=== PATIENT | male | born 1955 | race Caucasian/White ===

== ENCOUNTER 2024-10-30 11:54 | Inpatient (IN) | payer OTHER ==
[~2024-10-30] VITALS: Ht 193 cm; Wt 97.3 kg
[~2024-10-30 11:54] MED LIST: NORPTMEDS CO
--- NOTE | 2024-10-30 13:16 | ED.PDOC ---
Musculoskeletal HPI Comments 69 year old male presents to the ED with chief complaint of left leg swelling and pain. Patient reports that he has been experiencing left leg swelling and pain for the past 3 days. Patient relays that he has not been able to put weight on his leg at all. Patient denies any numbness, weakness, tingling, chest pain, SOB, or N/V. Chief Complaint: Extremity Swelling Time Seen by MD: 13:03 Primary Care Provider: RAIMUNDO Francisco Notes: Nurses Notes, Medications, Allergies Allergies: Coded Allergies: NO KNOWN ALLERGIES (Unverified , 05/14/10) Home Meds Reported Medications No Reported Medication (NO REPORTED MEDICATION) Ea, 0 CO UNK, EA PATIENT HAS NO REPORTED MEDICATIONS 08/19/13 Information Source: Patient Mode of Arrival: Wheelchair Location: Left Extremity Location: Leg Timing: Days Prehospital treatment: None Severity: Moderate Able to Move Extremity: Yes Bear Weight: Limited Pain: Moderate Mechanism: Spontaneous Circumstances: Spontaneous Onset of Symptoms: Spontaneous Symptoms: Swelling, Pain DVT Risk Factors: NONE Associated signs and symptoms: Leg pain Past Medical History PAST MEDICAL HISTORY: Denies Surgical History: Denies all surgeries Family History Family History: Unknown Social History Smoker: Cigarettes Alcohol: Denies ETOH Use Drugs: Denies Drug Use Lives In: Home Constitutional: denies: chills, diaphoresis, fatigue, fever, malaise, sweats, weakness, others EENTM: denies: blurred vision, double vision, ear bleeding, ear discharge, ear drainage, ear pain, ear ringing, eye pain, eye redness, hearing loss, mouth pain, mouth swelling, nasal discharge, nose bleeding, nose congestion, nose pain, photophobia, tearing, throat pain, throat swelling, voice changes, others Respiratory: denies: cough, hemoptysis, orthopnea, SOB at rest, shortness of breath, SOB with excertion, stridor, wheezing, others Cardiovascular: denies: chest pain, dizzy spells, diaphoresis, Dyspnea on exertion, edema, irregular heart beat, left arm pain, lightheadedness, palpitations, PND, syncope, others Gastrointestinal: denies: abdomen distended, abdominal pain, blood streaked bowels, constipated, diarrhea, dysphagia, difficulty swallowing, hematemesis, melena, nausea, poor appetite, poor fluid intake, rectal bleeding, rectal pain, vomiting, others Genitourinary: denies: burning, dysuria, flank pain, frequency, hematuria, incontinence, penile discharge, penile sore, pain, testicle pain, testicle swelling, urgency, others Neurological: denies: dizziness, fainting, headache, left sided numbness, left sided weakness, numbness, paresthesia, pre-existing deficit, right sided numbness, right sided weakness, seizure, speech problems, tingling, tremors, weakness, others Musculoskeletal: reports: others (Left leg swelling and pain); denies: back pain, gout, joint pain, joint swelling, muscle pain, muscle stiffness, neck pain Integumetry: denies: bruises, change in color, change in hair/nails, dryness, laceration, lesions, lumps, rash, wounds, others Allergic/Immunocompromised: denies: Difficulty Healing, Frequent Infections, Hives, Itching, others Hematologic/Lymphatic: denies: anemia, blood clots, easy bleeding, easy bruising, swollen glands, others Endocrine: denies: excessive hunger, excessive sweating, excessive thirst, excessive urination, flushing, intolerance to cold, intolerance to heat, unexplained weight gain, unexplained weight loss, others Psychiatric: denies: anxiety, bipolar disorder, depression, hopeless, panic disorder, schizophrenia, sleepless, suicidal, others All Other Systems: Reviewed and Negative Physical Exam General Appearance: Moderate Distress, Normal HEENT: Normal ENT Inspection, PERRL/EOMI Neck: Full Range of Motion, Non-Tender, Normal, Normal Inspection Respiratory: Chest Non-Tender, Lungs Clear, No Accessory Muscle Use, No Respiratory Distress, Normal Breath Sounds Cardiovascular: No Edema, No JVD, No Murmur, No Gallop, Normal Peripheral Pulses, Regular Rate/Rhythm Breast Exam: Deferred Gastrointestinal: No Organomegaly, Non Tender, No Pulsatile Mass, Normal Bowel Sounds, Soft Genitalia: Deferred Pelvic: Deferred Rectal: Deferred Extremities: No calf tenderness, Normal capillary refill, Normal inspection, Normal range of motion, Non-tender, No pedal edema Musculoskeletal : Apperance: Normal Neurologic: Alert, vat packer II-XII nml as Tested, No Motor Deficits, Normal Affect, Normal Mood, No Sensory Deficits Cerebellar Function: NOT DONE Reflexes: NOT DONE Skin: Dry, Normal Color, Warm Peripheral Pulses: 3+ Radial (R), 3+ Radial (L) Lymphatic: No Adenopathy Was a procedure done? Was a procedure done?: No Differential Diagnosis EXT Differential Diagnosis: CHF, Deep Vein Thrombosis X-Ray, Labs, Meds, VS Vital Signs Date Time Temp Pulse Resp B/P (MAP) Pulse Ox O2 Delivery O2 Flow Rate FiO2 10/30/24 12:20 98.2 108 18 129/78 (95) 97 98.2 Lab Test 10/30/24 14:00 Range/Units White Blood Count 10.5 4.4-10.8 10^3/uL Red Blood Count 5.29 4.5-5.90 10^6/uL Hemoglobin 18.3 H 13.5-17.5 g/dL Hematocrit 52.9 41.0-53.0 % Mean Corpuscular Volume 100.0 80.0-100.0 fL Mean Corpuscular Hemoglobin 34.6 H 28.0-32.0 pg Mean Corpuscular Hemoglobin Concent 34.6 32.0-36.0 g/dL Red Cell Distribution Width 13.6 11.8-14.3 % Platelet Count 117 L 140-450 10^3/uL Mean Platelet Volume 8.4 6.9-10.8 fL Neutrophils (%) (Auto) 81.5 H 37.0-80.0 % Lymphocytes (%) (Auto) 7.6 L 10.0-50.0 % Monocytes (%) (Auto) 10.3 0.0-12.0 % Eosinophils (%) (Auto) 0.3 0.0-7.0 % Basophils (%) (Auto) 0.3 0.0-2.0 % Neutrophils # (Auto) 8.6 1.6-8.6 10 ^3/uL Lymphocytes # (Auto) 0.8 0.4-5.4 10 ^3/uL Monocytes # (Auto) 1.1 0-1.3 10 ^3/uL Eosinophils # (Auto) 0 0-0.8 10 ^3/uL Basophils # (Auto) 0 0-0.2 10 ^3/uL Nucleated Red Blood Cells 0.1 % Sodium Level 133 L 136-145 mmol/L Potassium Level 4.2 3.5-5.1 mmol/L Chloride Level 97 L 98-107 mmol/L Carbon Dioxide Level 28 20-31 mmol/L Anion Gap 8 5-15 Blood Urea Nitrogen 9 9-23 mg/dL Creatinine 0.88 0.700-1.30 mg/dL Glomerular Filtration Rate Calc 94 >90 mL/min BUN/Creatinine Ratio 10.2 10.0-20.0 Serum Glucose 155 H 74-106 mg/dL Calcium Level 9.6 8.7-10.4 mg/dL Troponin I High Sensitivity < 3 L </=54 ng/L Lt DVT US: Findings/IMPRESSION: Positive DVT is present throughout the left lower extremity from the common femoral vein to the popliteal vein. Critical Result: Stroke Alert Findings discussed with Dr. Rivera, at 10/30/2024 02:52 PM, and acknowledged receipt and understanding of the findings. Patient alert. Complaining of left lower extremity pain. Vitals stable. Answering questions. Ultrasound does show DVT. Blood sugar elevated. Cardiac marker within normal limits. WBC within normal limits. Explained to the patient at 3:50 p.m. in the lobby that he will be admitted for DVT with anticoagulation. Continue to monitor. Images Reviewed?: Images reviewed and evaluated by me Time of 1ST Reevaluation: 14:03 Reevaluation 1ST: Unchanged Patient Education/Counseling: Diagnosis, Treatment Family Education/Counseling: Diagnosis, Treatment Additional Information The following tests were ordered, and results were reviewed by me: Lt Lower DVT, Chest XR, CBC, BMP, Troponin Additional Information was gathered from interviewing the following independent historians: None I reviewed and agreed with the following test results read by other providers: Lt Lower DVT, Chest XR I discussed treatment and results with medical personnel and: patient Comprehensive systems review obtained and negative except for what is stated in the HPI. Departure 1 Departure Time of Disposition: 16:08 Impression: Primary Impression: DVT (deep venous thrombosis) Qualified Codes: I82.412 - Acute embolism and thrombosis of left femoral vein Disposition: ADMITTED INPATIENT Admit to: Med Surg Condition: Guarded Comments Spoke to and examined patient at 1315, discussing treatment plan at this time. Critical Care Note Critical Care Time?: Yes (90 min-critical care time only) Critical care comment: Continue to monitor Stability Stability form required: No Heart Score Heart Score: Heart Score Response (Comments) Value History N/A 0 EKG N/A 0 Age N/A 0 Risk Factors N/A 0 Troponin N/A 0 Total 0 I personally scribed for EDDA RIVERA MD ([email or web address]) on 10/30/24 at 13:16. Electronically submitted by Kale Dietrich ([email or web address]). I personally scribed for EDDA RIVERA MD ([email or web address]) on 10/30/24 at 15:28. Electronically submitted by Kale Dietrich ([email or web address]). I personally scribed for EDDA RIVERA MD ([email or web address]) on 10/30/24 at 15:29. Electronically submitted by Kale Dietrich ([email or web address]). EDDA RIVERA MD October 30, 2024 13:16
--- NOTE | 2024-10-30 14:13 | DVH ---
CHEST RADIOGRAPH Indication: sob Technique: Single frontal view of the chest was obtained Comparison: None FINDINGS: Lines and Tubes: None Lungs: No focal consolidation. Pleura: No effusion. No pneumothorax. Cardiomediastinal contours: Unremarkable Bones: No acute osseous abnormality. IMPRESSION: No acute cardiopulmonary disease.
[2024-10-30 14:31] LABS: Basophils # (auto) 0 10 ^3/uL (0-0.2); Basophils % (auto) 0.3 % (0.0-2.0); Eosinophils # (auto) 0 10 ^3/uL (0-0.8); Eosinophils % (auto) 0.3 % (0.0-7.0); Hematocrit 52.9 % (41.0-53.0); Hemoglobin 18.3 g/dL (13.5-17.5); Lymphocytes # (auto) 0.8 10 ^3/uL (0.4-5.4); Lymphocytes % (auto) 7.6 % (10.0-50.0); Mean Corpuscular Hemoglobin 34.6 pg (28.0-32.0); Mean Corpuscular Hgb Conc. 34.6 g/dL (32.0-36.0); Monocytes # (auto) 1.1 10 ^3/uL (0-1.3); Monocytes % (auto) 10.3 % (0.0-12.0); Neutrophils # (auto) 8.6 10 ^3/uL (1.6-8.6); Neutrophils % (auto) 81.5 % (37.0-80.0); Nucleated Red Blood Cells % 0.1 %; Platelet Count (auto) 117 10^3/uL (140-450); Red Blood Cells 5.29 10^6/uL (4.5-5.90); Red Cell Distribution Width 13.6 % (11.8-14.3); White Blood Cell 10.5 10^3/uL (4.4-10.8)
[2024-10-30 14:32] LABS: Potassium 4.2 mmol/L (3.5-5.1)
[2024-10-30 14:33] LABS: Anion Gap 8 (5-15); Carbon Dioxide 28 mmol/L (20-31)
[2024-10-30 14:34] LABS: Calcium 9.6 mg/dL (8.7-10.4)
[2024-10-30 14:35] LABS: Chloride 97 mmol/L (98-107); Sodium 133 mmol/L (136-145)
[2024-10-30 14:38] LABS: BUN/Creatinine Ratio 10.2 (10.0-20.0)
[2024-10-30 14:39] LABS: Blood Urea Nitrogen 9 mg/dL (9-23); Glucose 155 mg/dL (74-106)
--- NOTE | 2024-10-30 14:55 | DVH ---
Left lower extremity venous duplex Clinical History: dvt Comparison: None Technique: Duplex Doppler evaluation of the deep venous system of the left lower extremity from the common femor al vein to the popliteal vein including color Doppler and spectral/pulsed waveform analysis was perfo rmed. Findings/IMPRESSION: Positive DVT is present throughout the left lower extremity from the common femoral vein to the popli teal vein. Critical Result: Stroke Alert Findings discussed with Dr. Valladares, at 10/30/2024 02:52 PM, and acknowledged receipt and understandi ng of the findings.
[2024-10-30] MEDS ORDERED: HEPARIN SODIUM (PORCINE) 5000 UNITS/ML 1ML VIAL IV ONE ×2 (16:15→20:15)
[2024-10-30] MEDS ORDERED: ONDANSETRON HCL 4 MG/2 ML VIAL IV PRN (19:30)
[2024-10-30] MEDS ORDERED: NITROGLYCERIN 0.4 MG SL TAB SL PRN (19:30)
[2024-10-30] MEDS ORDERED: ACETAMINOPHEN 325 MG TAB PO PRN (19:30)
[2024-10-30] MEDS ORDERED: MORPHINE SULFATE INJ 2 MG/ml SYRG IV PRN (19:30)
[2024-10-30 19:57] LABS: INR 1.04 (0.9-1.15); Partial Thromboplastin Time 29.9 SEC (24.5-34.5)
[2024-10-30 21:00] VITALS: PULSE 117; RESP 17; O2SAT 97
[2024-10-30] MEDS: HEPARIN SODIUM (PORCINE) 5000 UNITS/ML 1ML VIAL IV ONE (21:04)
--- NOTE | 2024-10-30 21:09 | DVHHP2 ---
History of Present Illness Reason for Visit: Left leg swelling History of Present Illness 69-year-old male presents for evaluation of left leg swelling. Patient reports noticing his left leg becoming swollen at the calf yesterday. Today he states his leg has extended swelling up to his groin reports being unable to bear weigh t on the leg and feels lot of pressure. No chest pain or shortness for breath. No other acute complaints reported. Past Medical History Denies Past Surgical History Denies Family History Noncontributory Smoke: <1 pack per day ALCOHOL: none Drugs: None Lives: with Family Review of Systems Review of Systems Review of systems are currently negative otherwise addressed in HPI. Allergies: Coded Allergies: NO KNOWN ALLERGIES (Unverified , 05/14/10) Medications Current Medications Medications Dose Ordered Sig/Yevgeniy Route Start Time Stop Time Status Last Admin Dose Admin Heparin Sodium/ Dextrose 250 ml @ 17 mls/hr [id number] IV 10/30/24 19:30 Acetaminophen/ Hydrocodone Bitart 1 tab Q4HP PRN PO 10/30/24 19:30 Ondansetron HCl 4 mg Q4HP PRN IV 10/30/24 19:30 Acetaminophen 650 mg Q6HP PRN PO 10/30/24 19:30 Nitroglycerin 0.4 mg Q5MINP PRN SL 10/30/24 19:30 Morphine Sulfate 2 mg Q30M PRN IV 10/30/24 19:30 Exam Vital Signs Vital Signs Date Time Temp Pulse Resp B/P (MAP) Pulse Ox O2 Delivery O2 Flow Rate FiO2 10/30/24 19:56 99.5 116 18 125/79 (94) 96 99.5 Exam Gen: 69-year-old male in mild distress Skin: Warm, dry, normal color and texture, no rash. HEENT: Normocephalic atraumatic, mucous membranes moist and pink. Neck: Cervical and supraclavicular nodes normal without enlargement, trachea is midline, thyroid gland is normal without masses. Pulmonary: Clear to auscultation and percussion bilaterally. Cardiac: Regular rate and rhythm. No murmur Abdomen: Soft, nontender, nondistended, bowel sounds present all 4 quadrants, no guarding, no rigidity, no organomegaly. Extremities: No cyanosis, clubbing, left lower extremity with extensive swelling and erythema from the going to the ankle Neuro: Cranial nerves II through XII grossly intact, normal affect and speech, no focal motor deficits. Labs/Xrays ORDERING PHYSICIAN: EDDA RIVERA MD PROCEDURE(s): CXRP - CHEST PORTABLE REASON: sob ORDER NUMBER(s): [id number], ACCESSION NUMBER(s): [id number] CHEST RADIOGRAPH Indication: sob Technique: Single frontal view of the chest was obtained Comparison: None FINDINGS: Lines and Tubes: None Lungs: No focal consolidation. Pleura: No effusion. No pneumothorax. Cardiomediastinal contours: Unremarkable Bones: No acute osseous abnormality. IMPRESSION: No acute cardiopulmonary disease. RING PHYSICIAN: EDDA RIVERA MD PROCEDURE(s): LLDVT - LT Lower DVT REASON: dvt ORDER NUMBER(s): [id number], ACCESSION NUMBER(s): [id number] Left lower extremity venous duplex Clinical History: dvt Comparison: None Technique: Duplex Doppler evaluation of the deep venous system of the left lower extremity from the common femoral vein to the popliteal vein including color Doppler and spectral/pulsed waveform analysis was performed. Findings/IMPRESSION: Positive DVT is present throughout the left lower extremity from the common femoral vein to the popliteal vein. Critical Result: Stroke Alert Findings discussed with Dr. Rivera, at 10/30/2024 02:52 PM, and acknowledged receipt and understanding of the findings. Labs Test 10/30/24 19:31 10/30/24 14:00 Range/Units Prothrombin Time 11.0 9.3-11.8 sec Prothrombin Time INR 1.04 0.9-1.15 Activated Partial Thromboplast Time 29.9 24.5-34.5 SEC White Blood Count 10.5 4.4-10.8 10^3/uL Red Blood Count 5.29 4.5-5.90 10^6/uL Hemoglobin 18.3 H 13.5-17.5 g/dL Hematocrit 52.9 41.0-53.0 % Mean Corpuscular Volume 100.0 80.0-100.0 fL Mean Corpuscular Hemoglobin 34.6 H 28.0-32.0 pg Mean Corpuscular Hemoglobin Concent 34.6 32.0-36.0 g/dL Red Cell Distribution Width 13.6 11.8-14.3 % Platelet Count 117 L 140-450 10^3/uL Mean Platelet Volume 8.4 6.9-10.8 fL Neutrophils (%) (Auto) 81.5 H 37.0-80.0 % Lymphocytes (%) (Auto) 7.6 L 10.0-50.0 % Monocytes (%) (Auto) 10.3 0.0-12.0 % Eosinophils (%) (Auto) 0.3 0.0-7.0 % Basophils (%) (Auto) 0.3 0.0-2.0 % Neutrophils # (Auto) 8.6 1.6-8.6 10 ^3/uL Lymphocytes # (Auto) 0.8 0.4-5.4 10 ^3/uL Monocytes # (Auto) 1.1 0-1.3 10 ^3/uL Eosinophils # (Auto) 0 0-0.8 10 ^3/uL Basophils # (Auto) 0 0-0.2 10 ^3/uL Nucleated Red Blood Cells 0.1 % Sodium Level 133 L 136-145 mmol/L Potassium Level 4.2 3.5-5.1 mmol/L Chloride Level 97 L 98-107 mmol/L Carbon Dioxide Level 28 20-31 mmol/L Anion Gap 8 5-15 Blood Urea Nitrogen 9 9-23 mg/dL Creatinine 0.88 0.700-1.30 mg/dL Glomerular Filtration Rate Calc 94 >90 mL/min BUN/Creatinine Ratio 10.2 10.0-20.0 Serum Glucose 155 H 74-106 mg/dL Calcium Level 9.6 8.7-10.4 mg/dL Troponin I High Sensitivity < 3 L </=54 ng/L Assessment/Plan Assessment/Plan Assessment Left lower extremity extensive DVT Plan Admit the patient to [facility] to the hospitalist ER provider ordered a bolus of heparin, therefore we will continue with the heparin drip ER provider also ordered a radiology consult Pain management Monitor for signs and symptoms of pulmonary embolism. Continue treatment per orders. Plan discussed with: Patient My Orders Orders - RADHAMES SANCHEZ AGACNP Procedure Category Date Status Time Platelet Monitoring [facility] 10/30/24 In Process 19:21 Vte Protocol Initiated 10/30/24 In Process 19:21 Heparin Per [facility] 10/30/24 In Process Standardized Proce 19:21 Discontinue All Im [facility] 10/30/24 In Process Injections 19:21 Heparin Drip/D5w [facility] 10/30/24 In Process 100units/Ml 19:30 Basic Metabolic Panel LAB 10/31/24 Verified 04:00 Admit ADMIT 10/30/24 Transmitted 19:23 Hydrocodone-Acet [facility] 10/30/24 In Process 5/325mg Tab ([place] 19:30 Ondansetron Hcl PH[facility] 10/30/24 In Process (Zofran) 19:30 Complete Blood Count LAB 10/31/24 Verified 04:00 Cardiac DIET 10/31/24 Transmitted Diet-2gna,Lofat,Lochol Breakfast Condition: Stable [facility] 10/30/24 In Process 19:23 Acetaminophen Tablet [facility] 10/30/24 In Process (Tylenol Tablet) 19:30 Bedrest With Bathroom [facility] 10/30/24 In Process Privileg 19:23 Nitroglycerin PHA 10/30/24 In Process Sublingual (Ntrostat 19:30 Morphine Sulfate PHA 10/30/24 In Process Injection 19:30 Stat Ekg For Chest [facility] 10/30/24 In Process Pain 19:23 Notify Md Of Changes [facility] 10/30/24 In Process From Base 19:23 Rider Ticket Worker For [facility] 10/30/24 In Process 24 Hours 19:23 Emergency Dysrhythmia [facility] 10/30/24 In Process Protocol 19:23 Rhythm Strips Once [facility] 10/30/24 In Process Every Shift 19:23 Oxygen By Nasal RT 10/30/24 Transmitted Cannula 19:23 Heparin Per Pharmacy [facility] 10/30/24 In Process Protocol 20:12 Date of Service: October 30, 2024 Billing Provider: RADHAMES SANCHEZ Common Visit Codes: [id number] INP/OBS CARE (HIGH) RADHAEMS SANCHEZ October 30, 2024 21:09
[2024-10-30] MEDS: HEPARIN DRIP/D5W 100UNITS/ML 250 ML IV SCH (21:14)
[2024-10-31 03:04] LABS: Basophils # (auto) 0.1 10 ^3/uL (0-0.2); Hemoglobin 17.1 g/dL (13.5-17.5); Lymphocytes # (auto) 1.3 10 ^3/uL (0.4-5.4); Red Cell Distribution Width 13.2 % (11.8-14.3); White Blood Cell 10.7 10^3/uL (4.4-10.8)
[2024-10-31 03:06] LABS: Basophils % (auto) 0.6 % (0.0-2.0); Eosinophils # (auto) 0.2 10 ^3/uL (0-0.8); Eosinophils % (auto) 1.5 % (0.0-7.0); Hematocrit 49.8 % (41.0-53.0); Mean Corpuscular Hemoglobin 34.2 pg (28.0-32.0); Mean Corpuscular Hgb Conc. 34.3 g/dL (32.0-36.0); Mean Corpuscular Volume 99.7 fL (80.0-100.0); Monocytes # (auto) 1.1 10 ^3/uL (0-1.3); Monocytes % (auto) 10.6 % (0.0-12.0); Neutrophils % (auto) 75.3 % (37.0-80.0); Platelet Count (auto) 117 10^3/uL (140-450); Red Blood Cells 4.99 10^6/uL (4.5-5.90)
[2024-10-31 03:13] LABS: Chloride 101 mmol/L (98-107); Potassium 3.7 mmol/L (3.5-5.1)
[2024-10-31 03:14] LABS: Anion Gap 8 (5-15); Carbon Dioxide 24 mmol/L (20-31)
[2024-10-31 03:19] LABS: BUN/Creatinine Ratio 10.8 (10.0-20.0)
[2024-10-31 03:25] LABS: Blood Urea Nitrogen 8 mg/dL (9-23); Calcium 8.3 mg/dL (8.7-10.4); Glucose 115 mg/dL (74-106); Sodium 133 mmol/L (136-145)
[2024-10-31 03:32] LABS: INR 1.07 (0.9-1.15); Prothrombin Time 11.3 sec (9.3-11.8)
[2024-10-31 03:37] LABS: Partial Thromboplastin Time 73.5 SEC (24.5-34.5)
[2024-10-31 08:00] VITALS: PULSE 97; RESP 16; O2SAT 95
[2024-10-31 09:28] LABS: INR 1.06 (0.9-1.15); Prothrombin Time 11.2 sec (9.3-11.8)
[2024-10-31 10:40] LABS: Urine Bacteria None Seen /hpf (None Seen)
[2024-10-31 10:45] LABS: Urine Blood Negative /uL (Negative); Urine Clarity Clear (Clear); Urine Color Orange (Yellow); Urine Protein, UAD TRACE (Negative); Urine Squamous Epithelial Cell FEW /hpf (<5); Urine Urobilinogen OVER mg/dL (Negative); Urine WBC 2 /HPF (0-3)
[2024-10-31 15:26] VITALS: BP 129/82; PULSE 101; RESP 16; TEMP 97.9; O2SAT 99
[2024-10-31 15:49] LABS: INR 1.05 (0.9-1.15); Prothrombin Time 11.1 sec (9.3-11.8)
[2024-10-31 16:25] VITALS: BP 129/82; PULSE 101; RESP 16; TEMP 97.9; O2SAT 99
[2024-10-31 17:00] VITALS: BP 115/74; PULSE 108; RESP 16; TEMP 98.1; O2SAT 95
--- NOTE | 2024-10-31 17:07 | DVHPN2 ---
Subjective 69-year-old male with no past medical history comes with chief complaint of swelling and pain in his left leg for the last 2-3 days Apparently he spends most of his day sitting on a computer, not very active Does not take any medications at home No shortness a breath Changes from previous H/P or p: Changes Objective Vitals Vital Signs Date Time Temp Pulse Resp B/P (MAP) Pulse Ox O2 Delivery O2 Flow Rate FiO2 10/31/24 16:25 97.9 101 16 129/82 (98) 99 97.9 10/31/24 16:25 Room Air* 0 21 Intake/Output Intake and Output 10/31/24 07:00 Intake Total 158 ml Balance 158 ml Intake IV Total 158 ml General Appearance: Alert, Oriented X3, Cooperative, No acute distress, mild distress Lungs: Clear to auscultation, Normal air movement Cardiovascular: Normal S1, Normal S2, No murmurs Abdomen: Normal bowel sounds, Soft, No tenderness Medications Current Medications Medications Dose Ordered Sig/Yevgeniy Route Start Time Stop Time Status Last Admin Dose Admin Heparin Sodium/ Dextrose 250 ml @ 17 mls/hr [id number] IV 10/30/24 19:30 10/31/24 10:27 17 MLS/HR Acetaminophen/ Hydrocodone Bitart 1 tab Q4HP PRN PO 10/30/24 19:30 Ondansetron HCl 4 mg Q4HP PRN IV 10/30/24 19:30 Acetaminophen 650 mg Q6HP PRN PO 10/30/24 19:30 Nitroglycerin 0.4 mg Q5MINP PRN SL 10/30/24 19:30 Morphine Sulfate 2 mg Q30M PRN IV 10/30/24 19:30 Laboratory Results Laboratory Tests 10/31/24 03:00 Chemistry Test 10/31/24 03:00 Calcium Level 8.3 mg/dL (8.7-10.4) L Coagulation Test 10/30/24 19:31 10/31/24 03:00 10/31/24 08:58 10/31/24 15:08 Prothrombin Time 11.0 sec (9.3-11.8) 11.3 sec (9.3-11.8) 11.2 sec (9.3-11.8) 11.1 sec (9.3-11.8) Prothrombin Time INR 1.04 (0.9-1.15) 1.07 (0.9-1.15) 1.06 (0.9-1.15) 1.05 (0.9-1.15) Activated Partial Thromboplast Time 29.9 SEC (24.5-34.5) 73.5 SEC (24.5-34.5) *H 69.0 SEC (24.5-34.5) H 63.0 SEC (24.5-34.5) H Urinalysis Test 10/31/24 10:25 Urine Color [place] (Yellow) H Urine Clarity Clear (Clear) Urine pH 6.0 (5.0-9.0) Urine Specific [place] 1.020 (1.001-1.035) Urine Protein Trace (Negative) H Urine Ketones Negative (Negative) Urine Blood Negative /uL (Negative) Urine Nitrite Negative (Negative) Urine Bilirubin 1+ (Negative) Urine Urobilinogen Over mg/dL (Negative) Urine Leukocyte Esterase Negative /uL (Negative) Urine RBC 3 /hpf (0 - 3) Urine Microscopic WBC 2 /HPF (0-3) Urine Squamous Epithelial Cells Few /hpf (<5) Urine Bacteria None seen /hpf (None Seen) Urine Glucose Normal mg/dL (Normal) Assessment/Plan Assessment/Plan Extensive DVT of the left lower extremity Mild hyponatremia No other medical history Plan Switch to Lovenox therapeutic dose Bedrest Pain management Full code Protonix for GI prophylaxis Plan discussed with: Patient Date of Service: October 31, 2024 Billing Provider: ELIZABETH ROWELL MD Common Visit Codes: NOT BILLABLE ELIZABETH ROWELL MD October 31, 2024 17:07
[2024-10-31] MEDS: PANTOPRAZOLE 40 MG TAB PO ONE (17:47)
[2024-10-31 20:00] VITALS: PULSE 105; PULSE 99; RESP 19; O2SAT 95
[2024-10-31 21:00] VITALS: BP 121/71; PULSE 99; RESP 18; TEMP 97.9; O2SAT 95
[2024-10-31] MEDS: ENOXAPARIN SOD 100 MG/1 ML SYRINGE SC SCH (21:59)
[2024-11-01] VITALS (11 sets, daily range): BP systolic 106–137; BP diastolic 61–86; PULSE 71–111; RESP 15–20; TEMP 97.7–98.3; O2SAT 94–99
[2024-11-01] MEDS: PANTOPRAZOLE 40 MG TAB PO SCH (05:40)
[2024-11-01 06:17] LABS: INR 1.03 (0.9-1.15); Partial Thromboplastin Time 36.1 SEC (24.5-34.5); Prothrombin Time 10.9 sec (9.3-11.8)
[2024-11-01 06:27] LABS: Albumin 3.5 g/dL (3.2-4.8); Alkaline Phosphatase 78 U/L (46-116); Anion Gap 7 (5-15); Aspartate Aminotransferase 38 U/L (13-40); BUN/Creatinine Ratio 13.2 (10.0-20.0); Blood Urea Nitrogen 10 mg/dL (9-23); Calcium 8.9 mg/dL (8.7-10.4); Carbon Dioxide 26 mmol/L (20-31); Chloride 100 mmol/L (98-107); Glucose 81 mg/dL (74-106); LDL Cholesterol 93 mg/dL (< 100); Magnesium 2.2 mg/dL (1.6-2.6); Potassium 3.8 mmol/L (3.5-5.1); Total Protein 5.8 g/dL (5.7-8.2); Triglycerides 103 mg/dL (< 150)
[2024-11-01 06:28] LABS: Cholesterol 141 mg/dL (< 200)
[2024-11-01 06:45] LABS: Alanine Aminotransferase 44 U/L (7-40); Bilirubin, Total 2.1 mg/dL (0.2-1.0); HDL Cholesterol 38 mg/dL (40-59); Sodium 133 mmol/L (136-145)
[2024-11-01 07:03] LABS: Lipase 37 U/L (12-53)
[2024-11-01] MEDS: IODIXANOL 320MG/ML 100ML BTL IV ONE (10:23)
[2024-11-01] MEDS: HEPARIN SODIUM (PORCINE) 5000 UNITS/ML 1ML VIAL ONE (10:25)
[2024-11-01] MEDS: LIDOCAINE W/ EPINEPHRINE 2% INJ 20ML VIAL ONE (10:25)
[2024-11-01] MEDS: ANGIOMAX 250 MG VIAL IV ONE ×2 (10:25→12:46)
[2024-11-01] MEDS: SODIUM CHL 0.9% 0 ML ONE (10:26)
[2024-11-01] MEDS: fentaNYL CITRATE 100 MCG/2 ML VL ONE (10:26)
[2024-11-01] MEDS: MIDAZOLAM HCL 2MG/2ML 2ml VIAL (1mg/ml) ONE (10:26)
[2024-11-01] MEDS: LIDOCAINE 2%HCL (LOCAL ANESTH.) INJ 20ML MDV ONE (10:26)
--- NOTE | 2024-11-01 10:40 | ECG ---
[facility] Test Date: 2024-11-01 Test Time: 10:19:50 Pat Name: GRETTA RIVERA Department: Room: 0214 B Gender: M Senior Web Designer: Jolene GUERRA RN : [id number] Requested By: ERMA MAR Order Number: [id number] Reading MD: Edilberto Durbin Measurements Intervals [place] Rate: 89 P: 49 AL: 134 QRS: 37 QRSD: 70 T: 29 QT: 388 QTc: 472 Interpretive Statements Normal sinus rhythm Electronically Signed On 11-02-2024 20:52:04 PDT by Edilberto Durbin Please click the below link to view image of tracing.
[2024-11-01] MEDS: HYDROcodone-ACET 5/325MG TAB PO PRN (14:44)
--- NOTE | 2024-11-01 15:48 | DVHINCON2 ---
Date Seen: November 01, 2024 Referring Physician MD Alfa Reason for Consultation May-Thurner Syndrome History of Present Illness This is a 69-year-old man who presented to the emergency room with a chief complaint of lead lower extremity edema for three days. During admission he was diagnosed with a positive extensive DVT of the left lower extremity from the common femoral vein to the popliteal vein. He underwent a lower extremity thrombectomy with Dr. 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 Significant medical history only includes tobacco use. Past Medical History Past medical history reviewed. No other significant than mentioned above. Past Surgical History Hernia repair Family History: Patient reports no known family medical history. Family History Family history reviewed. Social History Denies the use of illicit drugs and alcohol. Admits to tobacco use. Allergies: Coded Allergies: NO KNOWN ALLERGIES (Unverified , 05/14/10) Home Meds Reported Medications No Reported Medication (NO REPORTED MEDICATION) Ea, 0 CO UNK, EA PATIENT HAS NO REPORTED MEDICATIONS 08/19/13 Home Meds Denies home medications. Current Medications Current Medications Medications (Trade) Dose Ordered Sig/Yevgeniy Route PRN Reason Start Time Stop Time Status Last Admin Enoxaparin Sodium (Lovenox) 90 mg Q12HR SC 10/31/24 22:00 11/01/24 09:02 Pantoprazole Sodium (Protonix Tablet) 40 mg DAILY@0600 PO 11/01/24 06:00 11/01/24 05:40 Review of Systems Constitutional: No symptom reported Ears, Nose, & Throat: No symptom reported Eyes: No symptom reported Neurological: No symptoms reported Pulmonary/Respiratory: No symptom reported Cardiovascular: No symptom reported Gastrointestinal: No symptom reported Genitourinary: No symptom reported Musculoskeletal: Left lower extremity edema/pain Skin: No symptom reported Psychiatric: No symptom reported Endocrine: No symptom reported Hemotologic/Lymphatic: No symptom reported Vital Signs Vital Signs Date Time Temp Pulse Resp B/P (MAP) Pulse Ox O2 Delivery O2 Flow Rate FiO2 11/01/24 13:47 104 15 95 11/01/24 12:20 97.9 97.9 11/01/24 08:00 Room Air* 0 21 Physical Exam General Appearance: Cooperative. Well developed. Well nourished. In no acute distress Head Exam: Normal inspection Neck Exam: Normal inspection. Non-tender. Normal alignment Pulmonary/Respiratory: Chest non-tender. Clear bilateral breath sounds Cardiovascular/Chest: Regular rate and rhythm. S1, S2. NSR. No murmurs. No JVD. Peripheral Pulses: 2+ Radial (R). 2+ Radial (L). 2+ Pedal (R). 2+ Pedal (L) Abdominal Exam: Normal bowel sounds. Soft. Nontender. No hepatospenomegaly. No masses Ankle Exam: Negative ankle edema Lower extremities: Left lower extremity edema, nonpitting Neuro/Mental Status: A&O x4. Coherent Thoughts/Psych: Normal thought pattern. Appropriate mood and affect. Good judgement and insight Appearance: In no acute distress Skin Exam: Normal inspection. Normal color. Warm. Dry Labs/Diagnostic Data Labs Test 11/01/24 04:33 10/31/24 10:25 10/31/24 03:00 10/30/24 14:00 Range/Units Prothrombin Time 10.9 9.3-11.8 sec Prothrombin Time INR 1.03 0.9-1.15 Activated Partial Thromboplast Time 36.1 H 24.5-34.5 SEC Sodium Level 133 L 136-145 mmol/L Potassium Level 3.8 3.5-5.1 mmol/L Chloride Level 100 98-107 mmol/L Carbon Dioxide Level 26 20-31 mmol/L Anion Gap 7 5-15 Blood Urea Nitrogen 10 9-23 mg/dL Creatinine 0.76 0.700-1.30 mg/dL Glomerular Filtration Rate Calc 98 >90 mL/min BUN/Creatinine Ratio 13.2 10.0-20.0 Serum Glucose 81 74-106 mg/dL Calcium Level 8.9 8.7-10.4 mg/dL Magnesium Level 2.2 1.6-2.6 mg/dL Total Bilirubin 2.1 H 0.2-1.0 mg/dL Aspartate Amino Transferase (AST) 38 13-40 U/L Alanine Aminotransferase (ALT) 44 H 7-40 U/L Alkaline Phosphatase 78 46-116 U/L Total Protein 5.8 5.7-8.2 g/dL Albumin 3.5 3.2-4.8 g/dL Triglycerides Level 103 < 150 mg/dL Cholesterol Level 141 < 200 mg/dL LDL Cholesterol 93 < 100 mg/dL HDL Cholesterol 38 L 40-59 mg/dL Lipase 37 12-53 U/L Thyroid Stimulating Hormone (TSH) 2.30 0.55-4.78 uIU/mL Urine Color [place] Yellow Urine Clarity Clear Clear Urine pH 6.0 5.0-9.0 Urine Specific [place] 1.020 1.001-1.035 Urine Protein Trace H Negative Urine Ketones Negative Negative Urine Blood Negative Negative /uL Urine Nitrite Negative Negative Urine Bilirubin 1+ Negative Urine Urobilinogen Over Negative mg/dL Urine Leukocyte Esterase Negative Negative /uL Urine RBC 3 0 - 3 /hpf Urine Microscopic WBC 2 0-3 /HPF Urine Squamous Epithelial Cells Few <5 /hpf Urine Bacteria None seen None Seen /hpf Urine Glucose Normal Normal mg/dL White Blood Count 10.7 4.4-10.8 10^3/uL Red Blood Count 4.99 4.5-5.90 10^6/uL Hemoglobin 17.1 13.5-17.5 g/dL Hematocrit 49.8 41.0-53.0 % Mean Corpuscular Volume 99.7 80.0-100.0 fL Mean Corpuscular Hemoglobin 34.2 H 28.0-32.0 pg Mean Corpuscular Hemoglobin Concent 34.3 32.0-36.0 g/dL Red Cell Distribution Width 13.2 11.8-14.3 % Platelet Count 117 L 140-450 10^3/uL Mean Platelet Volume 8.0 6.9-10.8 fL Neutrophils (%) (Auto) 75.3 37.0-80.0 % Lymphocytes (%) (Auto) 12.0 10.0-50.0 % Monocytes (%) (Auto) 10.6 0.0-12.0 % Eosinophils (%) (Auto) 1.5 0.0-7.0 % Basophils (%) (Auto) 0.6 0.0-2.0 % Neutrophils # (Auto) 8.0 1.6-8.6 10 ^3/uL Lymphocytes # (Auto) 1.3 0.4-5.4 10 ^3/uL Monocytes # (Auto) 1.1 0-1.3 10 ^3/uL Eosinophils # (Auto) 0.2 0-0.8 10 ^3/uL Basophils # (Auto) 0.1 0-0.2 10 ^3/uL Nucleated Red Blood Cells 0.0 % Troponin I High Sensitivity < 3 L </=54 ng/L Assessment May-Thurner syndrome Extensive left lower extremity DVT status post thrombectomy Tobacco use Plan/Recommendation (Dr. Durbin) The patient underwent a successful left lower extremity thrombectomy with Dr. Grimm. Intra procedure the patient was found with May-Thurner syndrome and referred to Cardiology for left iliac venous stenting. Patient is scheduled for procedure with Dr. Durbin on 11/04/2024. In the meantime, continue therapeutic Lovenox and hold day of procedure. Postprocedure transition to Eliquis therapy 10mg BD x 7 days followed by 5mg BID for the remaining. Follow-up with cardiology or vascular specialist as outpatient within 2-3 weeks post-discharge. Thank you for allowing us to participate in this patient's care. Please call if you have any questions or concerns. This medical document was created using an electronic medical record system with voice recognition software and computerized dictation system. Although this document has been carefully reviewed, there might still be some phonetic and typographical errors. Occasional wrong-word or ``sound-alike substitutions may have occurred due to the inherent limitations of voice recognition software. These areas are purely typographical due to imperfections of the software programs and do not reflect any compromise in the patient's medical care. Plea se read the chart carefully and recognize, using context, where these substitutions have occurred. Plan discussed with: Patient, Other NYHA Physical activity limitations: NA Date of Service: November 01, 2024 Billing Provider: ANTOINE LOUIE Cardiology Common Codes: [id number] INP/OBS CARE (High) ANTOINE LOUIE November 01, 2024 15:48
--- NOTE | 2024-11-01 16:46 | DVHPN2 ---
Subjective s/p IR thrombectomy, found to have May-Thurner syndrome Changes from previous H/P or p: Changes Objective Vitals Vital Signs Date Time Temp Pulse Resp B/P (MAP) Pulse Ox O2 Delivery O2 Flow Rate FiO2 11/01/24 13:47 104 15 95 11/01/24 12:20 97.9 97.9 11/01/24 08:00 Room Air* 0 21 Intake/Output Intake and Output 11/01/24 07:00 Intake Total 486 ml Output Total 701 ml Balance -215 ml Intake Oral 350 ml IV Total 136 ml Output Urine Total 700 ml Stool Total 1 ml General Appearance: Alert, Oriented X3, Cooperative, No acute distress, mild distress Lungs: Clear to auscultation, Normal air movement Cardiovascular: Normal S1, Normal S2, No murmurs Abdomen: Normal bowel sounds, Soft, No tenderness Medications Current Medications Medications Dose Ordered Sig/Yevgeniy Route Start Time Stop Time Status Last Admin Dose Admin Acetaminophen/ Hydrocodone Bitart 1 tab Q4HP PRN PO 10/30/24 19:30 11/01/24 14:44 1 TAB Ondansetron HCl 4 mg Q4HP PRN IV 10/30/24 19:30 Acetaminophen 650 mg Q6HP PRN PO 10/30/24 19:30 Nitroglycerin 0.4 mg Q5MINP PRN SL 10/30/24 19:30 Morphine Sulfate 2 mg Q30M PRN IV 10/30/24 19:30 Enoxaparin Sodium 90 mg Q12HR SC 10/31/24 22:00 11/01/24 09:02 90 MG Pantoprazole Sodium 40 mg DAILY@0600 PO 11/01/24 06:00 11/01/24 05:40 40 MG Laboratory Results Laboratory Tests 10/31/24 03:00 11/01/24 04:33 Chemistry Test 11/01/24 04:33 Albumin 3.5 g/dL (3.2-4.8) Calcium Level 8.9 mg/dL (8.7-10.4) Magnesium Level 2.2 mg/dL (1.6-2.6) Total Protein 5.8 g/dL (5.7-8.2) Coagulation Test 11/01/24 04:33 Prothrombin Time 10.9 sec (9.3-11.8) Prothrombin Time INR 1.03 (0.9-1.15) Activated Partial Thromboplast Time 36.1 SEC (24.5-34.5) H Lipid panel Test 11/01/24 04:33 Cholesterol Level 141 mg/dL (< 200) HDL Cholesterol 38 mg/dL (40-59) L Lipase 37 U/L (12-53) Triglycerides Level 103 mg/dL (< 150) LFT Test 11/01/24 04:33 Alanine Aminotransferase (ALT) 44 U/L (7-40) H Alkaline Phosphatase 78 U/L (46-116) Aspartate Amino Transferase (AST) 38 U/L (13-40) Total Bilirubin 2.1 mg/dL (0.2-1.0) H HgA1c, TSH Test 11/01/24 04:33 Thyroid Stimulating Hormone (TSH) 2.30 uIU/mL (0.55-4.78) Urinalysis Test 10/31/24 10:25 Urine Color [place] (Yellow) H Urine Clarity Clear (Clear) Urine pH 6.0 (5.0-9.0) Urine Specific [place] 1.020 (1.001-1.035) Urine Protein Trace (Negative) H Urine Ketones Negative (Negative) Urine Blood Negative /uL (Negative) Urine Nitrite Negative (Negative) Urine Bilirubin 1+ (Negative) Urine Urobilinogen Over mg/dL (Negative) Urine Leukocyte Esterase Negative /uL (Negative) Urine RBC 3 /hpf (0 - 3) Urine Microscopic WBC 2 /HPF (0-3) Urine Squamous Epithelial Cells Few /hpf (<5) Urine Bacteria None seen /hpf (None Seen) Urine Glucose Normal mg/dL (Normal) Assessment/Plan Assessment/Plan Extensive DVT of the left lower extremity Mild hyponatremia No other medical history Plan Switch to Lovenox therapeutic dose Bedrest Pain management Full code Protonix for GI prophylaxis 11/01/24: Extensive DVT of the left lower extremity Mild hyponatremia May-Thurner syndrome Tobacco dependence Lovenox Vascular consult Dr. Durbin for left iliac vein stenting Plan discussed with: Patient My Orders Orders - ELIZABETH ROWELL MD Procedure Category Date Status Time Enoxaparin Sodium PHA 10/31/24 In Process (Lovenox) 22:00 Maintain Bed Rest LORA 10/31/24 In Process 17:04 Pantoprazole Tablet PHA 11/01/24 In Process (Protonix Tablet) 06:00 Percu.Venous XY 11/01/24 Taken Thrombectomy 12:12 * Cardiology Consult CONS 11/01/24 Verified 16:41 Date of Service: November 01, 2024 Billing Provider: ELIZABETH ROWELL MD Common Visit Codes: NOT BILLABLE ELIZABETH ROWELL MD November 01, 2024 16:46
--- NOTE | 2024-11-01 19:02 | DVH ---
[facility], HISTORY: 69 year old male with a new left leg swelling, pain, difficulty ambulating found to have a l eft common femoral to popliteal vein deep venous thrombus here for a thrombectomy. PROCEDURE: Informed consent was obtained. The patient was placed on the fluoroscopic table in prone p osition. The left popliteal fossa was prepped with chlorhexidine which was allowed to dry and draped in the usual sterile fashion. Time out was performed. Following administration of 1% local lidocaine, the popliteal vein was accessed with a micropuncture set under ultrasound guidance. Contrast was inj ected through the micropuncture sheath at the popliteal vein. A 6 [place] sheath was placed into the l eft popliteal vein. [place] advantage wire was used to access into the IVC. A glide catheter was placed into the IVC. A venogram was performed of the IVC. Blood was withdrawn for an ACT. The thrombus was visualized at the most proximal segment in the left common iliac vein. A Amplatz wire was then placed into the IVC at the inferior cavoatrial junction. A 13 [place] sheath was then placed into the poplit eal vein in exchange for the 6 [place] sheath. In[place] Clot Treiver device was advanced over the wire th rough the sheath into the common iliac vein. 4 passes were performed to extract thrombus from the lef t iliac vein to the left popliteal vein. A completion venogram was then performed at the iliac vein a nd at the popiteal femoral vein. The catheters and sheaths were then removed. A flow stasis device wa s utilized to obtained hemostasis with manual compression. No immediate complication was identified. DAP 1814 FLUOROSCOPY TIME: 9.9 minutes. CONTRAST USED: 50 mL . SEDATION: Dr. Rachel Grimm was personally responsible for the administration of moderate sedation during the procedure performed, including the use of an independent trained observer who had no other duties during the procedure. The drugs utilized were IV fentanyl and versed (see nursing log for details). The total time of supervision by the attending physician was approximately 45 minutes. FINDINGS: On venogram there is a long segment thrombus from the left popliteal vein, femoral vein, co mmon femoral vein, left iliac vein to the left common iliac vein. This was extracted using mechanical thrombectomy. A stenosis was visualized at the left common iliac vein. A waist was seen on the mecha nical thrombectomy device at the left common iliac vein. Improved patency and blood return was obtain ed. IMPRESSION: Long segment thrombus from the left popliteal vein, femoral vein, common femoral vein, left iliac vei n to the left common iliac vein. This was extracted using mechanical thrombectomy. A stenosis was visualized at the left common iliac vein. A waist was seen on the mechanical thrombect conchis device at the left common iliac vein. Improved patency and blood return was obtained after mechan ical thrombectomy. PLAN: Resume anticoagulation per primary provider. Consider venogram and angioplasty / stenting of th e left common iliac vein stenosis which could be a may thurner lesion. We'll remove flow stasis devic e on monday.
[2024-11-02] VITALS (9 sets, daily range): BP systolic 97–117; BP diastolic 51–75; PULSE 78–94; RESP 16–19; TEMP 98–98.2; O2SAT 93–96
[2024-11-02] MEDS: ENOXAPARIN SOD 100 MG/1 ML SYRINGE SC SCH (11:58)
--- NOTE | 2024-11-02 17:34 | DVHPN2 ---
Subjective s/p IR thrombectomy, found to have May-Thurner syndrome He feels better less edema and less pain Changes from previous H/P or p: Changes Objective Vitals Vital Signs Date Time Temp Pulse Resp B/P (MAP) Pulse Ox O2 Delivery O2 Flow Rate FiO2 11/02/24 16:22 98.2 86 17 109/67 (81) 94 98.2 11/01/24 20:00 Room Air* 0 21 Intake/Output Intake and Output 11/02/24 07:00 Intake Total 400 ml Output Total 1350 ml Balance -950 ml Intake Oral 400 ml Output Urine Total 1350 ml General Appearance: Alert, Oriented X3, Cooperative, No acute distress, mild distress Lungs: Clear to auscultation, Normal air movement Cardiovascular: Normal S1, Normal S2, No murmurs Abdomen: Normal bowel sounds, Soft, No tenderness Medications Current Medications Medications Dose Ordered Sig/Yevgeniy Route Start Time Stop Time Status Last Admin Dose Admin Acetaminophen/ Hydrocodone Bitart 1 tab Q4HP PRN PO 10/30/24 19:30 11/02/24 14:25 1 TAB Ondansetron HCl 4 mg Q4HP PRN IV 10/30/24 19:30 Acetaminophen 650 mg Q6HP PRN PO 10/30/24 19:30 Nitroglycerin 0.4 mg Q5MINP PRN SL 10/30/24 19:30 Morphine Sulfate 2 mg Q30M PRN IV 10/30/24 19:30 Pantoprazole Sodium 40 mg DAILY@0600 PO 11/01/24 06:00 11/02/24 05:22 40 MG Enoxaparin Sodium 100 mg Q12HR SC 11/02/24 11:25 11/02/24 11:58 100 MG Laboratory Results Laboratory Tests 10/31/24 03:00 11/01/24 04:33 Urinalysis Test 10/31/24 10:25 Urine Color [place] (Yellow) H Urine Clarity Clear (Clear) Urine pH 6.0 (5.0-9.0) Urine Specific [place] 1.020 (1.001-1.035) Urine Protein Trace (Negative) H Urine Ketones Negative (Negative) Urine Blood Negative /uL (Negative) Urine Nitrite Negative (Negative) Urine Bilirubin 1+ (Negative) Urine Urobilinogen Over mg/dL (Negative) Urine Leukocyte Esterase Negative /uL (Negative) Urine RBC 3 /hpf (0 - 3) Urine Microscopic WBC 2 /HPF (0-3) Urine Squamous Epithelial Cells Few /hpf (<5) Urine Bacteria None seen /hpf (None Seen) Urine Glucose Normal mg/dL (Normal) Assessment/Plan Assessment/Plan Extensive DVT of the left lower extremity Mild hyponatremia No other medical history Plan Switch to Lovenox therapeutic dose Bedrest Pain management Full code Protonix for GI prophylaxis 11/01/24: Extensive DVT of the left lower extremity Mild hyponatremia May-Thurner syndrome Tobacco dependence Lovenox Vascular consult Dr. Durbin for left iliac vein stenting 11/02/24: Continue Lovenox IR to do procedure on Monday for the left iliac vein Plan discussed with: Patient My Orders Orders - ELIZABETH ROWELL MD Procedure Category Date Status Time Enoxaparin Sodium PHA 11/02/24 In Process (Lovenox) 11:25 Date of Service: November 02, 2024 Billing Provider: ELIZABETH ROWELL MD Common Visit Codes: NOT BILLABLE ELIZABETH ROWELL MD November 02, 2024 17:34
[2024-11-03] VITALS (7 sets, daily range): BP systolic 102–127; BP diastolic 61–78; PULSE 82–95; RESP 17–20; TEMP 97.9–98.3; O2SAT 92–99
[2024-11-03 02:25] LABS: Benzodiazephine Screen, Urine Pos (NEGATIVE); Opiate Scree,Urine Pos (NEGATIVE)
[2024-11-03 02:26] LABS: Amphetamine Screen, Urine Neg (NEGATIVE); Barbiturate Scree,Urine Neg (NEGATIVE); Cannabinoid Screen, Urine Neg (NEGATIVE); Cocaine Screen, Urine Neg (NEGATIVE); Phencyclidine Screen, Urine Neg (NEGATIVE)
[2024-11-03 07:10] LABS: Basophils # (auto) 0 10 ^3/uL (0-0.2); Basophils % (auto) 0.8 % (0.0-2.0); Eosinophils # (auto) 0.1 10 ^3/uL (0-0.8); Hematocrit 44.5 % (41.0-53.0); Monocytes # (auto) 0.6 10 ^3/uL (0-1.3); Nucleated Red Blood Cells % 0.1 %
[2024-11-03 07:12] LABS: Eosinophils % (auto) 2.5 % (0.0-7.0); Hemoglobin 15.3 g/dL (13.5-17.5); Mean Corpuscular Hemoglobin 34.3 pg (28.0-32.0); Mean Corpuscular Hgb Conc. 34.5 g/dL (32.0-36.0); Mean Corpuscular Volume 99.5 fL (80.0-100.0); Monocytes % (auto) 10.6 % (0.0-12.0); Neutrophils # (auto) 3.6 10 ^3/uL (1.6-8.6); Neutrophils % (auto) 67.1 % (37.0-80.0); Platelet Count (auto) 125 10^3/uL (140-450); Red Blood Cells 4.47 10^6/uL (4.5-5.90); Red Cell Distribution Width 13.1 % (11.8-14.3); White Blood Cell 5.4 10^3/uL (4.4-10.8)
[2024-11-03 07:20] LABS: Alkaline Phosphatase 81 U/L (46-116); Anion Gap 9 (5-15); BUN/Creatinine Ratio 14.1 (10.0-20.0); Blood Urea Nitrogen 10 mg/dL (9-23); Calcium 8.8 mg/dL (8.7-10.4); Carbon Dioxide 24 mmol/L (20-31); Chloride 101 mmol/L (98-107); Glucose 94 mg/dL (74-106); Magnesium 2.4 mg/dL (1.6-2.6); Potassium 3.6 mmol/L (3.5-5.1)
[2024-11-03 07:21] LABS: Albumin 3.3 g/dL (3.2-4.8); Bilirubin, Total 1.1 mg/dL (0.2-1.0)
[2024-11-03 07:26] LABS: Alanine Aminotransferase 42 U/L (7-40); Aspartate Aminotransferase 54 U/L (13-40); Sodium 134 mmol/L (136-145); Total Protein 5.6 g/dL (5.7-8.2)
--- NOTE | 2024-11-03 12:40 | DVHPN2 ---
Subjective Doing better Less edema and pain Changes from previous H/P or p: Changes Objective Vitals Vital Signs Date Time Temp Pulse Resp B/P (MAP) Pulse Ox O2 Delivery O2 Flow Rate FiO2 11/03/24 08:00 98.0 85 17 114/75 (88) 94 98.0 11/02/24 19:40 Room Air* 0 21 Intake/Output Intake and Output 11/03/24 07:00 Intake Total 1900 ml Output Total 1750 ml Balance 150 ml Intake Oral 1900 ml Output Urine Total 1750 ml # Bowel Movements 1 General Appearance: Alert, Oriented X3, Cooperative, No acute distress, mild distress Lungs: Clear to auscultation, Normal air movement Cardiovascular: Normal S1, Normal S2, No murmurs Abdomen: Normal bowel sounds, Soft, No tenderness Medications Current Medications Medications Dose Ordered Sig/Yevgeniy Route Start Time Stop Time Status Last Admin Dose Admin Acetaminophen/ Hydrocodone Bitart 1 tab Q4HP PRN PO 10/30/24 19:30 11/03/24 09:56 1 TAB Ondansetron HCl 4 mg Q4HP PRN IV 10/30/24 19:30 Acetaminophen 650 mg Q6HP PRN PO 10/30/24 19:30 Nitroglycerin 0.4 mg Q5MINP PRN SL 10/30/24 19:30 Morphine Sulfate 2 mg Q30M PRN IV 10/30/24 19:30 Pantoprazole Sodium 40 mg DAILY@0600 PO 11/01/24 06:00 11/03/24 05:38 40 MG Enoxaparin Sodium 100 mg Q12HR SC 11/02/24 11:25 11/03/24 09:56 100 MG Laboratory Results Laboratory Tests 11/03/24 06:12 Chemistry Test 11/03/24 06:12 Albumin 3.3 g/dL (3.2-4.8) Calcium Level 8.8 mg/dL (8.7-10.4) Magnesium Level 2.4 mg/dL (1.6-2.6) Total Protein 5.6 g/dL (5.7-8.2) L LFT Test 11/03/24 06:12 Alanine Aminotransferase (ALT) 42 U/L (7-40) H Alkaline Phosphatase 81 U/L (46-116) Aspartate Amino Transferase (AST) 54 U/L (13-40) H Total Bilirubin 1.1 mg/dL (0.2-1.0) H Urinalysis Test 10/31/24 10:25 Urine Color [place] (Yellow) H Urine Clarity Clear (Clear) Urine pH 6.0 (5.0-9.0) Urine Specific [place] 1.020 (1.001-1.035) Urine Protein Trace (Negative) H Urine Ketones Negative (Negative) Urine Blood Negative /uL (Negative) Urine Nitrite Negative (Negative) Urine Bilirubin 1+ (Negative) Urine Urobilinogen Over mg/dL (Negative) Urine Leukocyte Esterase Negative /uL (Negative) Urine RBC 3 /hpf (0 - 3) Urine Microscopic WBC 2 /HPF (0-3) Urine Squamous Epithelial Cells Few /hpf (<5) Urine Bacteria None seen /hpf (None Seen) Urine Glucose Normal mg/dL (Normal) Assessment/Plan Assessment/Plan Extensive DVT of the left lower extremity Mild hyponatremia No other medical history Plan Switch to Lovenox therapeutic dose Bedrest Pain management Full code Protonix for GI prophylaxis 11/01/24: Extensive DVT of the left lower extremity Mild hyponatremia May-Thurner syndrome Tobacco dependence Lovenox Vascular consult Dr. Durbin for left iliac vein stenting 11/02/24: Continue Lovenox IR to do procedure on Monday for the left iliac vein 11/03/2024: Continue current management pending the procedure tomorrow Continue Lovenox Hold Lovenox tomorrow morning Plan discussed with: Patient Date of Service: November 03, 2024 Billing Provider: ELIZABETH ROWELL MD Common Visit Codes: NOT BILLABLE ELIZABETH ROWELL MD November 03, 2024 12:40
[2024-11-04] VITALS (11 sets, daily range): BP systolic 97–130; BP diastolic 52–92; PULSE 64–95; RESP 14–20; TEMP 97.4–98.3; O2SAT 96–98
[2024-11-04 06:45] LABS: Calcium 8.9 mg/dL (8.7-10.4); Chloride 102 mmol/L (98-107); Sodium 135 mmol/L (136-145)
[2024-11-04 06:46] LABS: Anion Gap 8 (5-15); Carbon Dioxide 25 mmol/L (20-31)
[2024-11-04 06:48] LABS: INR 0.98 (0.9-1.15); Partial Thromboplastin Time 32.7 SEC (24.5-34.5); Prothrombin Time 10.4 sec (9.3-11.8)
[2024-11-04 06:51] LABS: BUN/Creatinine Ratio 10.8 (10.0-20.0); Glucose 80 mg/dL (74-106)
[2024-11-04 06:54] LABS: Basophils # (auto) 0.1 10 ^3/uL (0-0.2); Basophils % (auto) 0.9 % (0.0-2.0); Eosinophils # (auto) 0.2 10 ^3/uL (0-0.8); Eosinophils % (auto) 3.2 % (0.0-7.0); Hematocrit 46.9 % (41.0-53.0); Mean Corpuscular Hemoglobin 33.8 pg (28.0-32.0); Mean Corpuscular Volume 99.4 fL (80.0-100.0); Monocytes # (auto) 0.7 10 ^3/uL (0-1.3); Monocytes % (auto) 10.6 % (0.0-12.0); Neutrophils # (auto) 4.3 10 ^3/uL (1.6-8.6); Neutrophils % (auto) 69.3 % (37.0-80.0); Nucleated Red Blood Cells % 0.3 %; Platelet Count (auto) 169 10^3/uL (140-450); Red Blood Cells 4.72 10^6/uL (4.5-5.90); Red Cell Distribution Width 13.1 % (11.8-14.3); White Blood Cell 6.2 10^3/uL (4.4-10.8)
[2024-11-04 07:04] LABS: Blood Urea Nitrogen 7 mg/dL (9-23)
[2024-11-04 09:34] LABS: Urine Bacteria FEW /hpf (None Seen); Urine Blood Negative /uL (Negative); Urine Clarity Clear (Clear); Urine Color Light-Orange (Yellow); Urine Protein, UAD Negative (Negative); Urine Specific Gravity 1.012 (1.001-1.035); Urine Squamous Epithelial Cell None Seen /hpf (<5); Urine Urobilinogen 3 mg/dL (Negative); Urine WBC 1 /HPF (0-3)
--- NOTE | 2024-11-04 10:39 | DVHPN2 ---
Subjective Pending procedure for left iliac vein stenting today Left leg is better Changes from previous H/P or p: Changes Objective Vitals Vital Signs Date Time Temp Pulse Resp B/P (MAP) Pulse Ox O2 Delivery O2 Flow Rate FiO2 11/04/24 08:36 97.4 88 17 123/79 (94) 97 97.4 11/03/24 20:00 Room Air* 0 21 Intake/Output Intake and Output 11/04/24 07:00 Intake Total 1860 ml Output Total 925 ml Balance 935 ml Intake Oral 1860 ml Output Urine Total 925 ml # Voids 4 # Bowel Movements 1 General Appearance: Alert, Oriented X3, Cooperative, No acute distress, mild distress Lungs: Clear to auscultation, Normal air movement Cardiovascular: Normal S1, Normal S2, No murmurs Abdomen: Normal bowel sounds, Soft, No tenderness Medications Current Medications Medications Dose Ordered Sig/Yevgeniy Route Start Time Stop Time Status Last Admin Dose Admin Acetaminophen/ Hydrocodone Bitart 1 tab Q4HP PRN PO 10/30/24 19:30 11/03/24 20:32 1 TAB Ondansetron HCl 4 mg Q4HP PRN IV 10/30/24 19:30 Acetaminophen 650 mg Q6HP PRN PO 10/30/24 19:30 Nitroglycerin 0.4 mg Q5MINP PRN SL 10/30/24 19:30 Morphine Sulfate 2 mg Q30M PRN IV 10/30/24 19:30 Pantoprazole Sodium 40 mg DAILY@0600 PO 11/01/24 06:00 11/04/24 05:21 40 MG Enoxaparin Sodium 100 mg Q12HR SC 11/02/24 11:25 11/03/24 21:34 100 MG Laboratory Results Laboratory Tests 11/04/24 05:07 Chemistry Test 11/04/24 05:07 Calcium Level 8.9 mg/dL (8.7-10.4) Coagulation Test 11/04/24 05:07 Prothrombin Time 10.4 sec (9.3-11.8) Prothrombin Time INR 0.98 (0.9-1.15) Activated Partial Thromboplast Time 32.7 SEC (24.5-34.5) Urinalysis Test 11/04/24 08:13 Urine Color [place] (Yellow) Urine Clarity Clear (Clear) Urine pH 7.0 (5.0-9.0) Urine Specific [place] 1.012 (1.001-1.035) Urine Protein Negative (Negative) Urine Ketones Negative (Negative) Urine Blood Negative /uL (Negative) Urine Nitrite Negative (Negative) Urine Bilirubin Negative (Negative) Urine Urobilinogen 3 mg/dL (Negative) H Urine Leukocyte Esterase Negative /uL (Negative) Urine RBC <1 /hpf (0 - 3) Urine Microscopic WBC 1 /HPF (0-3) Urine Squamous Epithelial Cells None seen /hpf (<5) Urine Bacteria Few /hpf (None Seen) H Urine Glucose Normal mg/dL (Normal) Assessment/Plan Assessment/Plan Extensive DVT of the left lower extremity Mild hyponatremia No other medical history Plan Switch to Lovenox therapeutic dose Bedrest Pain management Full code Protonix for GI prophylaxis 11/01/24: Extensive DVT of the left lower extremity Mild hyponatremia May-Thurner syndrome Tobacco dependence Lovenox Vascular consult Dr. Durbin for left iliac vein stenting 11/02/24: Continue Lovenox IR to do procedure on Monday for the left iliac vein 11/03/2024: Continue current management pending the procedure tomorrow Continue Lovenox Hold Lovenox tomorrow morning 11/04/2024: Hold the Lovenox this morning for the procedure We will resume Lovenox afterwards and then start the patient on Eliquis to go home with Monitor closely Plan discussed with: Patient Date of Service: November 04, 2024 Billing Provider: ELIZABETH ROWELL MD Common Visit Codes: NOT BILLABLE ELIZABETH ROWELL MD November 04, 2024 10:39
[2024-11-04] MEDS ORDERED: levETIRAcetam 500 MG TAB PO ONE (10:45)
[2024-11-04] MEDS: IODIXANOL 320MG/ML 100ML BTL IV ONE (11:36)
[2024-11-04] MEDS: ANGIOMAX 250 MG VIAL IV ONE ×2 (11:48→13:20)
[2024-11-04] MEDS: fentaNYL CITRATE 100 MCG/2 ML VL ONE (11:49)
[2024-11-04] MEDS: LIDOCAINE 2%HCL (LOCAL ANESTH.) INJ 20ML MDV ONE (11:49)
[2024-11-04] MEDS: SODIUM CHL 0.9% 50 ML ONE (11:49)
[2024-11-04] MEDS: MIDAZOLAM HCL 2MG/2ML 2ml VIAL (1mg/ml) ONE (11:49)
--- NOTE | 2024-11-04 13:38 | DVHOP2 ---
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 These include but are not limited to complications of anesthesia, postoperative infection, incomplete relief of symptoms, recurrence of symptoms, damage to bloo d vessels, nerves and tendons, deep venous thrombosis, pulmonary embolism and possible need for repeat surgery in the future. Complications: No complications Findings: Thrombosed left iliac and common femoral vein Indications for Surgery: DVT Name of Procedure Performed Partial left iliac thrombectomy Procedure Details Procedure Details: Prior full informed consent obtained the patient is prepped and draped in usual fashion local anesthesia was given to the left femoral area and with ultrasound and fluoroscopic guidance we gained access into the common femoral vein. A six Gibraltarian sheath was then inserted and injection of contrast revealed an almost complete thrombosis of the left iliac vein. There was thrombus in the common femoral as well. We then placed an 11 Gibraltarian sheath and performed partial thrombectomy with penumbra seven Gibraltarian device. We were able to achieve only a partial amount of thrombus. Given that we did not have the appropriate size sheath we will terminated the procedure. We will bring the patient back for a staged procedure performed thrombectomy of the left lower extremity and stenting of the left iliac. In the interim we will continue with anticoagulation. Condition Good Disposition Still a Patient Date of Service: November 04, 2024 Billing Provider: BENITO DURBIN Sr., MD Cardiology Common Codes: PROCEDURE ONLY (Partial thrombectomy of left iliac vein) BENITO DURBIN Sr., MD November 04, 2024 13:38
[2024-11-04] MEDS: ENOXAPARIN SOD 100 MG/1 ML SYRINGE SC ONE (14:12)
--- NOTE | 2024-11-04 15:44 | DVH ---
Left lower extremity venous duplex Clinical History: LLE clot Comparison: US LT LOWER DVT on DOS: 10/30/24 Findings: Duplex Doppler evaluation of the deep venous system of the left lower extremity from the common femor al vein to the popliteal vein including color Doppler and spectral/pulsed waveform analysis was perfo rmed. Extensive deep vein thrombosis extending from common femoral vein superficial femoral vein to poplite al vein and trifurcation veins. The veins are not Augmentin and compressive. . Impression: 1. Severe extensive deep vein thrombosis involving the left lower extremity. 2. This is amenable for pharmacomechanical lysisThe The referring physician was notified of this finding
[2024-11-04] MEDS ORDERED: levETIRAcetam 500 MG TAB PO SCH (22:00)
[2024-11-05] VITALS (9 sets, daily range): BP systolic 97–131; BP diastolic 48–77; PULSE 81–91; RESP 15–20; TEMP 97.6–98.2; O2SAT 93–96
--- NOTE | 2024-11-05 11:56 | DVHPN2 ---
Subjective Doing well Edema is better He had an attempted left iliac vein thrombectomy, but it was not done given the complete thrombosis of the left iliac vein, the procedure was terminated and he will be brought back again for a staged procedure thrombectomy of the left lower extremity and stenting of the left iliac vein once the appropriate size she had is obtained for the procedure Changes from previous H/P or p: Changes Objective Vitals Vital Signs Date Time Temp Pulse Resp B/P (MAP) Pulse Ox O2 Delivery O2 Flow Rate FiO2 11/05/24 09:19 98.0 85 19 131/77 (95) 93 98.0 11/05/24 08:00 Room Air* 0 21 Intake/Output Intake and Output 11/05/24 07:00 Intake Total 520 ml Output Total 425 ml Balance 95 ml Intake Oral 520 ml Output Urine Total 425 ml # Voids 7 General Appearance: Alert, Oriented X3, Cooperative, No acute distress, mild distress Lungs: Clear to auscultation, Normal air movement Cardiovascular: Normal S1, Normal S2, No murmurs Abdomen: Normal bowel sounds, Soft, No tenderness Medications Current Medications Medications Dose Ordered Sig/Yevgeniy Route Start Time Stop Time Status Last Admin Dose Admin Acetaminophen/ Hydrocodone Bitart 1 tab Q4HP PRN PO 10/30/24 19:30 11/05/24 10:34 1 TAB Ondansetron HCl 4 mg Q4HP PRN IV 10/30/24 19:30 Acetaminophen 650 mg Q6HP PRN PO 10/30/24 19:30 Nitroglycerin 0.4 mg Q5MINP PRN SL 10/30/24 19:30 Morphine Sulfate 2 mg Q30M PRN IV 10/30/24 19:30 Pantoprazole Sodium 40 mg DAILY@0600 PO 11/01/24 06:00 11/05/24 06:02 40 MG Enoxaparin Sodium 100 mg Q12HR SC 11/02/24 11:25 11/05/24 10:08 100 MG Laboratory Results Laboratory Tests 11/04/24 05:07 Urinalysis Test 11/04/24 08:13 Urine Color Light-orange (Yellow) Urine Clarity Clear (Clear) Urine pH 7.0 (5.0-9.0) Urine Specific [place] 1.012 (1.001-1.035) Urine Protein Negative (Negative) Urine Ketones Negative (Negative) Urine Blood Negative /uL (Negative) Urine Nitrite Negative (Negative) Urine Bilirubin Negative (Negative) Urine Urobilinogen 3 mg/dL (Negative) H Urine Leukocyte Esterase Negative /uL (Negative) Urine RBC <1 /hpf (0 - 3) Urine Microscopic WBC 1 /HPF (0-3) Urine Squamous Epithelial Cells None seen /hpf (<5) Urine Bacteria Few /hpf (None Seen) H Urine Glucose Normal mg/dL (Normal) Assessment/Plan Assessment/Plan Extensive DVT of the left lower extremity Mild hyponatremia No other medical history Plan Switch to Lovenox therapeutic dose Bedrest Pain management Full code Protonix for GI prophylaxis 11/01/24: Extensive DVT of the left lower extremity Mild hyponatremia May-Thurner syndrome Tobacco dependence Lovenox Vascular consult Dr. Durbin for left iliac vein stenting 11/02/24: Continue Lovenox IR to do procedure on Monday for the left iliac vein 11/03/2024: Continue current management pending the procedure tomorrow Continue Lovenox Hold Lovenox tomorrow morning 11/04/2024: Hold the Lovenox this morning for the procedure We will resume Lovenox afterwards and then start the patient on Eliquis to go home with Monitor closely 11/05/2024: Continue Lovenox pending the 2nd stage procedure that the patient needs per Dr. Durbin Monitor closely Plan discussed with: Patient My Orders Orders - ELIZABETH ROWELL MD Procedure Category Date Status Time * Wound Consult CONS 11/04/24 Transmitted Date of Service: November 05, 2024 Billing Provider: ELIZABETH ROWELL MD Common Visit Codes: NOT BILLABLE ELIZABETH ROWELL MD November 05, 2024 11:55
[2024-11-06] VITALS (11 sets, daily range): BP systolic 104–126; BP diastolic 60–87; PULSE 79–101; RESP 13–24; TEMP 97.8–98; O2SAT 93–98
[2024-11-06] MEDS: IODIXANOL 320MG/ML 100ML BTL IV ONE ×2 (14:29→14:52)
[2024-11-06] MEDS: ANGIOMAX 250 MG VIAL IV ONE ×2 (14:36→15:41)
[2024-11-06] MEDS: LIDOCAINE 2%HCL (LOCAL ANESTH.) INJ 10ml MDV ONE (14:37)
[2024-11-06] MEDS: MIDAZOLAM HCL 2MG/2ML 2ml VIAL (1mg/ml) ONE (14:37)
[2024-11-06] MEDS: SODIUM CHL 0.9% 50 ML ONE ×3 (14:37→15:41)
[2024-11-06] MEDS: fentaNYL CITRATE 100 MCG/2 ML VL ONE (14:37)
[2024-11-06] MEDS: APIXABAN 5 MG TAB PO ONE (16:45)
--- NOTE | 2024-11-06 18:50 | DVHOP2 ---
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 Thrombosed Left iliac vein. Surgeon: eBnito Durbin MD Anesthesiologist: Conscious sedation Anesthesia: Mac, Local Consent: The patient was informed of the risks and benefits of the procedure. These include but are not limited to complications of anesthesia, postoperative infection, incomplete relief of symptoms, recurrence of symptoms, damage to blood vessels, nerves and tendons, deep venous thrombosis, pulmonary embolism and possible need for repeat surgery in the future. Complications: No complications Name of Procedure Performed Partial left iliac thrombectomy Procedure Details Procedure Details: Prior full informed consent obtained the patient is prepped and draped in usual fashion local anesthesia was given to the left Popliteal area. The patient was in a prone position. With ultrasound guidance we gained access into the thrombosed left popliteal Vein and placed a six Gibraltarian sheath. Through the sheath we placed A J curved guidewire and a quick cross catheter to navigate through the areas of thrombosis into the vena cava. We then exchanged for an Amplatz wire and placed a 16 Gibraltarian INARI sheath into the left popliteal vein. we then obtained a clot retriever device after placing a Amplatz wire into the superior vena cava and subclavian vein. We made several runs from the origin of the left popliteal initiating at the origin of the left iliac and vena cava. A significant amount of thrombus was recovered. An intravascular ultrasound revealed a significant stenosis in the left iliac origin and through the proximal iliac as well. After retrieving extensive amount of thrombus we then performed balloon angioplasty of the left iliac from the origin of the vena cava / iliac bifurcation at the confluence. We then gained access into the right popliteal vein with a six Gibraltarian sheath and placed a pigtail catheter and performed simultaneous angiographic evaluations of the distal vena cava and confluence bifurcation of the vena cava and iliac veins. This allowed us a reference point by which we then performed an intravascular ultrasound of the right and left iliacs in order to obtain proper sizing for stenting. We then placed an Abre 120 mm by 14 mm stent into the proximal left iliac vein extending into the lower iliac vein. We post dilated with a 12 mm by 80 mm balloon. There was notable improvement in flow. Angiographic evaluation at the end of the procedure revealed a complete relief of thrombus burden from the entirety of the deep femoral and popliteal vein as well as of the iliac vein. With excellent stent opposition as noted by intravascular ultrasound with a volcano device. A flow stasis device was placed on both popliteals Secured with 2-0 Prolene at the end of the procedure. Patient tolerated the procedure well there were no complications. Specimen: Significant amount of fresh and partially organized thrombus was removed from the femoral vein in iliac vein. Condition Good Disposition Still a Patient Date of Service: November 06, 2024 Billing Provider: BENITO DURBIN Sr., MD Cardiology Common Codes: [id number] INP/OBS CARE (High) Peripheral Procedures Codes: [id number] W/TRANS ANGPLASTY, [id number] PLACMNT W/ANGIOPLASTY ( thrombectomy of deep femoral vein and left iliac vein. Intravascular ultrasound of bilateral iliac veins. Angiographic evaluation of bilateral deep femoral and iliac veins. Vena cava evaluation with angiographic injection and intravascular ultrasound. Intravascular ultrasound evaluation of bilateral iliacs, bilateral femorals and inferior vena cava. Thrombectomy and stenting of the left iliac vein), [id number] ATHERECTOMY ANGIO BENITO DURBIN Sr., MD November 06, 2024 18:50
--- NOTE | 2024-11-06 20:57 | DVHPN2 ---
Subjective Better Left iliac vein stent today Changes from previous H/P or p: Changes Objective Vitals Vital Signs Date Time Temp Pulse Resp B/P (MAP) Pulse Ox O2 Delivery O2 Flow Rate FiO2 11/06/24 18:00 90 19 119/72 (88) 93 11/06/24 12:41 97.9 97.9 11/06/24 08:00 Room Air* 0 21 Intake/Output Intake and Output 11/06/24 07:00 Intake Total 1136 ml Output Total 1170 ml Balance -34 ml Intake Oral 1136 ml Output Urine Total 1170 ml # Voids 3 General Appearance: Alert, Oriented X3, Cooperative, No acute distress, mild distress Lungs: Clear to auscultation, Normal air movement Cardiovascular: Normal S1, Normal S2, No murmurs Abdomen: Normal bowel sounds, Soft, No tenderness Medications Current Medications Medications Dose Ordered Sig/Yevgeniy Route Start Time Stop Time Status Last Admin Dose Admin Acetaminophen/ Hydrocodone Bitart 1 tab Q4HP PRN PO 10/30/24 19:30 11/06/24 20:30 1 TAB Ondansetron HCl 4 mg Q4HP PRN IV 10/30/24 19:30 Acetaminophen 650 mg Q6HP PRN PO 10/30/24 19:30 Nitroglycerin 0.4 mg Q5MINP PRN SL 10/30/24 19:30 Morphine Sulfate 2 mg Q30M PRN IV 10/30/24 19:30 Pantoprazole Sodium 40 mg DAILY@0600 PO 11/01/24 06:00 11/06/24 05:42 40 MG Apixaban 5 mg BID PO 11/06/24 22:00 Laboratory Results Laboratory Tests 11/04/24 05:07 Urinalysis Test 11/04/24 08:13 Urine Color Light-orange (Yellow) Urine Clarity Clear (Clear) Urine pH 7.0 (5.0-9.0) Urine Specific [place] 1.012 (1.001-1.035) Urine Protein Negative (Negative) Urine Ketones Negative (Negative) Urine Blood Negative /uL (Negative) Urine Nitrite Negative (Negative) Urine Bilirubin Negative (Negative) Urine Urobilinogen 3 mg/dL (Negative) H Urine Leukocyte Esterase Negative /uL (Negative) Urine RBC <1 /hpf (0 - 3) Urine Microscopic WBC 1 /HPF (0-3) Urine Squamous Epithelial Cells None seen /hpf (<5) Urine Bacteria Few /hpf (None Seen) H Urine Glucose Normal mg/dL (Normal) Assessment/Plan Assessment/Plan Extensive DVT of the left lower extremity Mild hyponatremia No other medical history Plan Switch to Lovenox therapeutic dose Bedrest Pain management Full code Protonix for GI prophylaxis 11/01/24: Extensive DVT of the left lower extremity Mild hyponatremia May-Thurner syndrome Tobacco dependence Lovenox Vascular consult Dr. Durbin for left iliac vein stenting 11/02/24: Continue Lovenox IR to do procedure on Monday for the left iliac vein 11/03/2024: Continue current management pending the procedure tomorrow Continue Lovenox Hold Lovenox tomorrow morning 11/04/2024: Hold the Lovenox this morning for the procedure We will resume Lovenox afterwards and then start the patient on Eliquis to go home with Monitor closely 11/05/2024: Continue Lovenox pending the 2nd stage procedure that the patient needs per Dr. Durbin Monitor closely 11/06/24: Left iliac vein thrombosis s/p stent DVT L leg May-Thurner syndrome Tobacco smoking Start Eliquis Plan discussed with: Patient Date of Service: November 06, 2024 Billing Provider: ELIZABETH ROWELL MD Common Visit Codes: NOT BILLABLE EILZABETH ROWELL MD November 06, 2024 20:57
[2024-11-06] MEDS: APIXABAN 5 MG TAB PO SCH (22:04)
[2024-11-07] VITALS (8 sets, daily range): BP systolic 101–110; BP diastolic 63–70; PULSE 74–99; RESP 14–18; TEMP 97.7–98.2; O2SAT 94–99
--- NOTE | 2024-11-07 10:14 | DVHPN2 ---
Subjective No new complaints except for weakness and some pain in the leg Changes from previous H/P or p: Changes Objective Vitals Vital Signs Date Time Temp Pulse Resp B/P (MAP) Pulse Ox O2 Delivery O2 Flow Rate FiO2 11/07/24 09:29 98.0 84 14 109/69 (82) 96 98.0 11/07/24 08:00 Room Air* 0 21 Intake/Output Intake and Output 11/07/24 07:00 Intake Total 394 ml Output Total 600 ml Balance -206 ml Intake Oral 394 ml Output Urine Total 600 ml # Voids 6 General Appearance: Alert, Oriented X3, Cooperative, No acute distress, mild distress Lungs: Clear to auscultation, Normal air movement Cardiovascular: Normal S1, Normal S2, No murmurs Abdomen: Normal bowel sounds, Soft, No tenderness Medications Current Medications Medications Dose Ordered Sig/Yevgeniy Route Start Time Stop Time Status Last Admin Dose Admin Acetaminophen/ Hydrocodone Bitart 1 tab Q4HP PRN PO 10/30/24 19:30 11/07/24 09:46 1 TAB Ondansetron HCl 4 mg Q4HP PRN IV 10/30/24 19:30 Acetaminophen 650 mg Q6HP PRN PO 10/30/24 19:30 Nitroglycerin 0.4 mg Q5MINP PRN SL 10/30/24 19:30 Morphine Sulfate 2 mg Q30M PRN IV 10/30/24 19:30 Pantoprazole Sodium 40 mg DAILY@0600 PO 11/01/24 06:00 11/07/24 06:38 40 MG Apixaban 5 mg BID PO 11/06/24 22:00 11/07/24 09:46 5 MG Laboratory Results Laboratory Tests 11/04/24 05:07 Urinalysis Test 11/04/24 08:13 Urine Color Light-orange (Yellow) Urine Clarity Clear (Clear) Urine pH 7.0 (5.0-9.0) Urine Specific [place] 1.012 (1.001-1.035) Urine Protein Negative (Negative) Urine Ketones Negative (Negative) Urine Blood Negative /uL (Negative) Urine Nitrite Negative (Negative) Urine Bilirubin Negative (Negative) Urine Urobilinogen 3 mg/dL (Negative) H Urine Leukocyte Esterase Negative /uL (Negative) Urine RBC <1 /hpf (0 - 3) Urine Microscopic WBC 1 /HPF (0-3) Urine Squamous Epithelial Cells None seen /hpf (<5) Urine Bacteria Few /hpf (None Seen) H Urine Glucose Normal mg/dL (Normal) Assessment/Plan Assessment/Plan Extensive DVT of the left lower extremity Mild hyponatremia No other medical history Plan Switch to Lovenox therapeutic dose Bedrest Pain management Full code Protonix for GI prophylaxis 11/01/24: Extensive DVT of the left lower extremity Mild hyponatremia May-Thurner syndrome Tobacco dependence Lovenox Vascular consult Dr. Durbin for left iliac vein stenting 11/02/24: Continue Lovenox IR to do procedure on Monday for the left iliac vein 11/03/2024: Continue current management pending the procedure tomorrow Continue Lovenox Hold Lovenox tomorrow morning 11/04/2024: Hold the Lovenox this morning for the procedure We will resume Lovenox afterwards and then start the patient on Eliquis to go home with Monitor closely 11/05/2024: Continue Lovenox pending the 2nd stage procedure that the patient needs per Dr. Durbin Monitor closely 11/06/24: Left iliac vein thrombosis s/p stent DVT L leg May-Thurner syndrome Tobacco smoking Start Eliquis 11/07/2024: Start physical therapy at 5:00 p.m. today Monitor overnight and discharge planning for tomorrow Plan discussed with: Patient Date of Service: November 07, 2024 Billing Provider: ELIZABETH ROWELL MD Common Visit Codes: NOT BILLABLE ELIZABETH ROWELL MD November 07, 2024 10:14
--- NOTE | 2024-11-07 13:43 | DVHPN2 ---
Consult Progress Note Subjective Other Systems: Patient in normal sinus rhythm on monitoring specialist Denies any cardiac symptoms at time of assessment. Objective vital signs Vital Sign Date Time Temp Pulse Resp B/P (MAP) Pulse Ox O2 Delivery O2 Flow Rate FiO2 11/07/24 13:07 98.1 89 16 105/64 (78) 95 98.1 11/07/24 08:00 Room Air* 0 21 Total Intake and Output 11/06/24 11/06/24 11/07/24 15:00 23:00 07:00 Intake Total 394 ml Output Total 600 ml Balance -206 ml medications Current Medications Medications Dose Ordered Sig/Yevgeniy Route Start Time Stop Time Status Last Admin Dose Admin Acetaminophen/ Hydrocodone Bitart 1 tab Q4HP PRN PO 10/30/24 19:30 11/07/24 09:46 1 TAB Ondansetron HCl 4 mg Q4HP PRN IV 10/30/24 19:30 Acetaminophen 650 mg Q6HP PRN PO 10/30/24 19:30 Nitroglycerin 0.4 mg Q5MINP PRN SL 10/30/24 19:30 Morphine Sulfate 2 mg Q30M PRN IV 10/30/24 19:30 Pantoprazole Sodium 40 mg DAILY@0600 PO 11/01/24 06:00 11/07/24 06:38 40 MG Apixaban 5 mg BID PO 11/06/24 22:00 11/07/24 09:46 5 MG Examination: GENERAL:Normal, LUNGS:Normal, CVS:Normal, NEURO:Normal laboratory and microbiology Laboratory Tests 11/04/24 05:07 Test 11/04/24 05:07 Range/Units Serum Glucose 80 74-106 mg/dL Problem List/Assessment/Plan Problem List/Assessment/Plan May-Thurner syndrome s/p left iliac stenting Extensive left lower extremity DVT status post thrombectomy Tobacco use Plan/Recommendation (Dr. Durbin) Case discussed with . The patient underwent a successful left lower extremity thrombectomy with Dr. Grimm. Intra procedure the patient was found with May-Thurner syndrome and referred to Cardiology for left iliac venous stenting. The patient underwent left iliac venous stenting on 11/06/2024. Today (11/07/24) both flow stasis devices were removed. No active bleeding noted at time of removal. The patient has been initiated on Eliquis therapy. Patient given extensive education regarding compliance of medication. The patient also educated on lifestyle changes such as cessation of smoking. The patient will need to follow up with Cardiology in the outpatient setting within 1-2 weeks post discharge. The patient verbalized an understanding. There is no further inpatient cardiac workup indicated at this time. Thank you for allowing us to care for this patient. Please call with any questions or concerns. This medical document was created using an electronic medical record system with voice recognition software and computerized dictation system. Although this document has been carefully reviewed, there might still be some phonetic and typographical errors. Occasional wrong-word or ``sound-alike substitutions may have occurred due to the inherent limitations of voice recognition software. These areas are purely typographical due to imperfections of the software programs and do not reflect any compromise in the patient's medical care. Please read the chart carefully and recognize, using context, where these substitutions have occurred. Plan discussed with: Patient Dietary Evaluation Review Comments: 1) Add cardiac restriction to diet 2) Initiate Ensure Enlive qd. Encourage optimal PO intake 3) Encourage physical activity as medically feasible 4) Follow-up with cardiology and vascular 5) Continue to monitor I&O, labs, and skin integrity Expected Outcomes/Goals: 1) appetite and labs to improve 2) f/u in 3-5 days Date of Service: November 07, 2024 Billing Provider: KRYSTIN VAUGHAN Common Visit Codes: [id number] INP/OBS CARE(HIGH) KRYSTIN VAUGHAN November 07, 2024 13:43
[2024-11-08 01:00] VITALS: BP 105/66; PULSE 84; RESP 17; TEMP 98.1; O2SAT 94
[2024-11-08 05:00] VITALS: BP 98/56; PULSE 89; RESP 17; TEMP 98.3; O2SAT 98
[2024-11-08 08:00] VITALS: PULSE 91; RESP 18; O2SAT 97
[2024-11-08 09:00] VITALS: BP 120/73; PULSE 91; RESP 20; TEMP 97.4; O2SAT 97
[2024-11-08] MEDS ORDERED: APIX5TAB PO (11:25)
--- NOTE | 2024-11-08 11:28 | DVHDS2 ---
Discharge Summary Date of Admission October 30, 2024 at 19:23 Date of Discharge: November 08, 2024 Labs/Diagnostic Data: Laboratory Results Test 11/04/24 08:13 11/04/24 05:07 11/03/24 06:12 11/03/24 02:02 Urine Color Light-orange (Yellow) Urine Clarity Clear (Clear) Urine pH 7.0 (5.0-9.0) Urine Specific Anna 1.012 (1.001-1.035) Urine Protein Negative (Negative) Urine Ketones Negative (Negative) Urine Blood Negative /uL (Negative) Urine Nitrite Negative (Negative) Urine Bilirubin Negative (Negative) Urine Urobilinogen 3 mg/dL (Negative) Urine Leukocyte Esterase Negative /uL (Negative) Urine RBC <1 /hpf (0 - 3) Urine Microscopic WBC 1 /HPF (0-3) Urine Squamous Epithelial Cells None seen /hpf (<5) Urine Bacteria Few /hpf (None Seen) Urine Glucose Normal mg/dL (Normal) White Blood Count 6.2 10^3/uL (4.4-10.8) Red Blood Count 4.72 10^6/uL (4.5-5.90) Hemoglobin 16.0 g/dL (13.5-17.5) Hematocrit 46.9 % (41.0-53.0) Mean Corpuscular Volume 99.4 fL (80.0-100.0) Mean Corpuscular Hemoglobin 33.8 pg (28.0-32.0) Mean Corpuscular Hemoglobin Concent 34.0 g/dL (32.0-36.0) Red Cell Distribution Width 13.1 % (11.8-14.3) Platelet Count 169 10^3/uL (140-450) Mean Platelet Volume 7.9 fL (6.9-10.8) Neutrophils (%) (Auto) 69.3 % (37.0-80.0) Lymphocytes (%) (Auto) 16.0 % (10.0-50.0) Monocytes (%) (Auto) 10.6 % (0.0-12.0) Eosinophils (%) (Auto) 3.2 % (0.0-7.0) Basophils (%) (Auto) 0.9 % (0.0-2.0) Neutrophils # (Auto) 4.3 10 ^3/uL (1.6-8.6) Lymphocytes # (Auto) 1.0 10 ^3/uL (0.4-5.4) Monocytes # (Auto) 0.7 10 ^3/uL (0-1.3) Eosinophils # (Auto) 0.2 10 ^3/uL (0-0.8) Basophils # (Auto) 0.1 10 ^3/uL (0-0.2) Nucleated Red Blood Cells 0.3 % Prothrombin Time 10.4 sec (9.3-11.8) Prothrombin Time INR 0.98 (0.9-1.15) Activated Partial Thromboplast Time 32.7 SEC (24.5-34.5) Sodium Level 135 mmol/L (136-145) Potassium Level 4.0 mmol/L (3.5-5.1) Chloride Level 102 mmol/L (98-107) Carbon Dioxide Level 25 mmol/L (20-31) Anion Gap 8 (5-15) Blood Urea Nitrogen 7 mg/dL (9-23) Creatinine 0.65 mg/dL (0.700-1.30) Glomerular Filtration Rate Calc 103 mL/min (>90) BUN/Creatinine Ratio 10.8 (10.0-20.0) Serum Glucose 80 mg/dL (74-106) Calcium Level 8.9 mg/dL (8.7-10.4) Magnesium Level 2.4 mg/dL (1.6-2.6) Total Bilirubin 1.1 mg/dL (0.2-1.0) Aspartate Amino Transferase (AST) 54 U/L (13-40) Alanine Aminotransferase (ALT) 42 U/L (7-40) Alkaline Phosphatase 81 U/L (46-116) Total Protein 5.6 g/dL (5.7-8.2) Albumin 3.3 g/dL (3.2-4.8) Urine Opiates Screen Pos (NEGATIVE) Urine Fentanyl Screen Neg (NEGATIVE) Urine Barbiturates Screen Neg (NEGATIVE) Urine Phencyclidine Screen Neg (NEGATIVE) Urine Amphetamines Screen Neg (NEGATIVE) Urine Benzodiazepines Screen Pos (NEGATIVE) Urine Cocaine Screen Neg (NEGATIVE) Urine Cannabinoids Screen Neg (NEGATIVE) Test 11/01/24 04:33 10/30/24 14:00 Triglycerides Level 103 mg/dL (< 150) Cholesterol Level 141 mg/dL (< 200) LDL Cholesterol 93 mg/dL (< 100) HDL Cholesterol 38 mg/dL (40-59) Lipase 37 U/L (12-53) Thyroid Stimulating Hormone (TSH) 2.30 uIU/mL (0.55-4.78) Troponin I High Sensitivity < 3 ng/L (</=54) Other Laboratory Tests 11/04/24 05:07 Brief Hx & Hospital Course: Final diagnoses: Extensive DVT of the left lower extremity 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 Mild hyponatremia No other medical history 69-year-old male who was admitted for DVT of the left leg was found to have a 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 Vascular surgery was consulted and he had the procedure to put a stent in the vein He was started on anticoagulation on admission His edema and pain improved every day After the procedure was done yesterday in the evening he started ambulating and then he is ambulating also today Vital signs are stable He was started initially on heparin and then Lovenox but after the procedure he has been on Eliquis He will be discharged on Eliquis 5 mg twice a day Follow up with his primary care physician as soon as possible Condition at Discharge: Stable Final Diagnosis/Problems List May-Thurner syndrome/ deep vein thrombosis of left lower extremity. Thrombosed Left iliac vein. Discharge Disposition: Home SNF Discharge Will this Physician continue t: No Discharge Statement: "Patient was advised to return to the ER or call 911 if any headaches, dizziness, shortness of breath, chest pain, abdominal pain, bleeding, fevers, or worsening of medical condition. Patient was counseled about treatment plan, medications, possible side effects, patientverbalized understanding. All questions were answered to the best of my ability. This discharge took greater then 30 minutes in planning, reviewing documentation, counseling the patient, and discussing with other team members." ASSESSMENT ASSESSMENT Assessment May-Thurner syndrome/ deep vein thrombosis of left lower extremity.Thrombosed Left iliac vein. Date of Service: November 08, 2024 Billing Provider: ELIZABETH ROWELL MD Common Visit Codes: NOT BILLABLE ELIZABETH ROWELL MD November 08, 2024 11:27
[2024-11-08 12:45] VITALS: BP 114/66; PULSE 100; RESP 16; TEMP 97.8; O2SAT 95
[2024-11-08 13:00] VITALS: BP 114/66; PULSE 100; RESP 16; TEMP 97.8; O2SAT 95
== END 2024-11-08 15:30 | disposition home or self-care (01) | DRG 271 ==
LOC: ER 11:58 → OVERFLOW 19:23 → CENTRAL 10-31 15:43 → TELE-CENTR 11-04 08:41
PROVIDERS: ADMIT Internal Medicine Geriatric Medicine; ATTEND Internal Medicine Geriatric Medicine
PROC: 04CD3ZZ Extirpation of Matter from Left Common Iliac Artery, Percutaneous Approach (ICD-10-PCS; principal; 2024-11-01)
PROC: 04CN3ZZ Extirpation of Matter from Left Popliteal Artery, Percutaneous Approach (ICD-10-PCS; 2024-11-01)
PROC: B5191ZZ Fluoroscopy of Inferior Vena Cava using Low Osmolar Contrast (ICD-10-PCS; 2024-11-01)
PROC: 04CD3ZZ Extirpation of Matter from Left Common Iliac Artery, Percutaneous Approach (ICD-10-PCS; 2024-11-04)
PROC: 04CD3ZZ Extirpation of Matter from Left Common Iliac Artery, Percutaneous Approach (ICD-10-PCS; 2024-11-06)
PROC: 047D3DZ Dilation of Left Common Iliac Artery with Intraluminal Device, Percutaneous Approach (ICD-10-PCS; 2024-11-06)
PROC: B54DZZ3 Ultrasonography of Bilateral Lower Extremity Veins, Intravascular (ICD-10-PCS; 2024-11-06)
PROC: B51DYZZ Fluoroscopy of Bilateral Lower Extremity Veins using Other Contrast (ICD-10-PCS; 2024-11-06)
DX: I82.412 Acute embolism and thrombosis of left femoral vein (principal); E87.1 Hypo-osmolality and hyponatremia; I87.1 Compression of vein; I82.422 Acute embolism and thrombosis of left iliac vein; I82.432 Acute embolism and thrombosis of left popliteal vein; F17.210 Nicotine dependence, cigarettes, uncomplicated
CPT/HCPCS: 36011; 36012; 36415; 37187; 37238; 37252; 71045; 80048; 80053; 80061; 80307; 81001; 83690; 83735; 84443; 84484; 85025; 85610; 85730; 86850; 86900; 86901; 93005; 93971; 96374; 97110; 97116; 97163; 97530; 99152; 99291; 99292; C1769; C1894; G0378; J2003; J2250; Q9967